=== PATIENT | female | born 1980 | race Two or more races ===

== ENCOUNTER 2018-01-28 08:38 | Outpatient (CLI) | payer OTHER | END 2018-01-28 12:04 | disposition home or self-care (01) | LOC: SONOGRAMA 08:38 | DX: N64.4 Mastodynia (principal) ==

== ENCOUNTER 2022-07-13 10:30 | Outpatient (CLI) | payer OTHER | END 2022-07-13 10:40 | disposition home or self-care (01) | LOC: PPH VACUNA 10:30 | PROVIDERS: ATTEND Emergency Medicine Pediatric Emergency Medicine | DX: Z23 Encounter for immunization (principal) ==